=== PATIENT | male | born 1975 | race Caucasian/White ===

== ENCOUNTER 2022-01-20 20:00 | Outpatient (CLI) | payer MEDICAID, SELFPAY | END 2022-01-20 20:01 | disposition home or self-care (01) | LOC: SLEEP 01-21 08:05 | PROVIDERS: Family Provider Nurse Practitioner Family; Visit Provider Family Medicine | DX: G47.33 Obstructive sleep apnea (adult) (pediatric) (principal) | CPT/HCPCS: 95811 ==